=== PATIENT | female | born 1960 ===

== ENCOUNTER 2017-10-08 12:35 | Day surgery (SDC) | payer BC ==
[~2017-10-08] VITALS: Ht 162.6 cm; Wt 83.4 kg
[2017-10-08 12:55] VITALS: BP 144/98; PULSE 68; TEMP 98.9
[2017-10-08 14:40] VITALS: BP 131/79; PULSE 74; TEMP 99
[2017-10-08 14:55] VITALS: BP 119/82; PULSE 74
[2017-10-08 15:10] VITALS: BP 116/76; PULSE 67
[2017-10-08 15:25] VITALS: BP 121/84; PULSE 64
== END 2017-10-08 15:45 | disposition home or self-care (01) ==
LOC: SDCO 12:35
DX: Z12.11 Encounter for screening for malignant neoplasm of colon (principal); D12.0 Benign neoplasm of cecum; D12.5 Benign neoplasm of sigmoid colon; K57.30 Diverticulosis of large intestine without perforation or abscess without bleeding; K64.0 First degree hemorrhoids
CPT/HCPCS: OP; J2250; J2405; J3010; J7030

== ENCOUNTER → 2017-11-22 | Outpatient (CLI) | payer BC | LOC: MC.RAD 11-18 13:20 | DX: N63.20 Unspecified lump in the left breast, unspecified quadrant (principal); L72.0 Epidermal cyst ==